=== PATIENT | female | born 1955 | race African-American/Black ===

== ENCOUNTER 2020-02-16 20:49 | Emergency (ER) | payer OTHER ==
[~2020-02-16] VITALS: Ht 172.7 cm; Wt 77.1 kg
[~2020-02-16 20:49] MED LIST: COZAAR 25 MG TA25 M1 PO; IBUPROFEN 600600 M1 PO; NORCO 5-325 TA1 EACH PO
[2020-02-16] MEDS ORDERED: VALSARTAN-HCTZ1 EACH PO (20:57)
[2020-02-16 21:12] VITALS: BP 168/111
== END 2020-02-16 21:26 | disposition home or self-care (01) ==
LOC: ER 20:49
DX: I10 Essential (primary) hypertension (principal); R51 Headache; Z79.899 Other long term (current) drug therapy; Z88.5 Allergy status to narcotic agent; Z79.82 Long term (current) use of aspirin

== ENCOUNTER 2021-05-04 08:18 | Emergency (ER) | payer OTHER ==
[~2021-05-04] VITALS: Ht 172.7 cm; Wt 80.7 kg
[~2021-05-04 08:18] MED LIST changes: +VALSARTAN-HCTZ1 EACH PO
[2021-05-04 09:20] LABS: ABSOLUTE NEUTROPHILS 2.6 thou/uL (1.4-8.2); BASOPHILS 0.6 % (0.0-2.0); EOSINOPHILS 0.1 % (0.0-3.0); HEMOGLOBIN 13.1 gm/dL (12.0-15.0); LYMPHOCYTES 18.2 % (24.0-44.0); MCH 27.6 pg (26.0-34.0); MCV 86.4 fL (80.0-100.0); MONOCYTES 12.8 % (1.0-8.0); PLATELET COUNT 174 thou/uL (150-400); POLYS 68.3 % (36.0-66.0); RBC 4.74 mil/uL (4.20-5.00); RDW 13.3 % (10.5-14.5); WBC 3.8 thou/uL (4.0-11.0)
[2021-05-04 09:23] LABS: CALCIUM 8.7 mg/dL (8.5-10.1); POTASSIUM 3.9 mmol/L (3.5-5.1)
[2021-05-04 09:32] LABS: ALBUMIN 3.5 g/dL (3.4-5.0); TOTAL BILIRUBIN 0.4 mg/dL (0.2-1.0); TOTAL PROTEIN 7.1 g/dL (6.4-8.2)
[2021-05-04 09:52] LABS: URINE BILIRUBIN NEGATIVE (Negative); URINE BLOOD NEGATIVE (Negative); URINE CLARITY CLEAR; URINE COLOR YELLOW; URINE GLUCOSE-RANDOM* NEGATIVE (Negative); URINE KETONES NEGATIVE (Negative); URINE LEUKOCYTES-REFLEX NEGATIVE (Negative); URINE NITRITE-REFLEX NEGATIVE (Negative); URINE PROTEIN (DIPSTICK) NEGATIVE (Negative); URINE UROBILINOGEN 0.2 E.U./dl (0.2-1.0)
[2021-05-04 11:11] VITALS: BP 110/66
--- NOTE | 2021-05-06 07:35 | EKG ---
[address] [address] ELECTROCARDIOGRAM REPORT Name: NOY GEIGER Room #: [facility]#: [id number] Admission: 05/04/21 Attend Phys: Discharge: 05/04/21 Date of : 59 Report #: [id number] [facility] [place], [place] ED Test Date: 2021-05-04 Test Time: 08:25:59 Pat Name: NOY GEIGER Department: Room: Gender: F Central Communications Specialist: COLEMAN : 1955 Requested By: Gurpreet Zuñiga Order Number: [id number] MD: Billy Narayan Measurements Intervals [place] Rate: 70 P: 46 VT: 141 QRS: 50 QRSD: 79 T: 60 QT: 373 QTc: 403 Interpretive Statements Sinus rhythm Compared to ECG 05/13/1998 12:36:00 ST (T wave) deviation no longer present Electronically Signed On 05-06-2021 7:35:08 SENIOR BIOINFORMATICS SPECIALIST by Billy Narayan [email or web address] <ELECTRONICALLY SIGNED> By: Billy Narayan MD, [facility] 05/06/21 0735 0825 4 Billy Narayan MD, FACC /EPI
== END 2021-05-04 11:11 | disposition home or self-care (01) ==
LOC: ER 08:18
PROVIDERS: Emergency Medicine
DX: M79.10 Myalgia, unspecified site (principal); I10 Essential (primary) hypertension; Z79.899 Other long term (current) drug therapy; Z88.5 Allergy status to narcotic agent